=== PATIENT | male | born 1985 ===

== ENCOUNTER 2019-01-17 19:14 | Emergency (ER) | payer SELFPAY ==
--- NOTE | 2019-01-17 20:08 | C.PDOC ---
History Of Present Illness 33 y/o M p/w abdominal pain x 2 days. Pain is epigastric, constant, nonradiating, moderate in severity, associated with NBNB vomiting x 3. Reports normal bowel movements. Denies fever, chills, chest pain, dyspnea, dysuria, trauma. Reports drinking for the last 10 days, last drink about 5 hours ago. Time Seen by Provider: 01/17/19 19:59 Chief Complaint (Nursing): Abdominal Pain Past Medical History Vital Signs: Last Vital Signs Temp 98.2 F 01/17/19 19:25 Pulse 118 H 01/17/19 19:25 Resp 22 01/17/19 19:25 BP 160/124 H 01/17/19 19:25 Pulse Ox 97 01/17/19 19:25 - Medical History PMH: Anxiety, HTN Family History: States: No Known Family Hx - Social History Hx Alcohol Use: Yes Hx Substance Use: No - Immunization History Hx Tetanus Toxoid Vaccination: No Hx Influenza Vaccination: No Hx Pneumococcal Vaccination: No Review Of Systems Except As Marked, All Systems Reviewed And Found Negative. Constitutional: Negative for: Fever Cardiovascular: Negative for: Chest Pain Physical Exam - Physical Exam Additional Physical Exam Comments: Gen: NAD Head: NC/AT Eyes PERRL. ENT, no tongue fasciculations MMM Neck Supple and no midline tenderness Chest not tender CV Regular rate Lungs CTA b/l Abd: Epigastric tenderness. No rebound or guarding. Back: No CVA tenderness or midline tenderness Skin Flushed face Extremiites: FROM x 4 no tenderness or edema Neuro: Alert, no hand tremor ED Course And Treatment - Laboratory Results Result Diagrams: 01/17/19 20:24 01/17/19 20:24 O2 Sat by Pulse Oximetry: 97 Medical Decision Making Medical Decision Makin33 y/o alcoholic male with abd pain and vomiting without signs of withdrawal other than HTN but unknown baseline BP. Hydrate, Zofran, CT, labs, reassess. Differental includes but not limited to alcoholic gastritis, pancreatitis, dehydration, withdrawal, cholecystitis. CT abd/pel FINDINGS: LUNG BASES: The lung bases appear clear. No pleural effusions are seen. LIVER: There is hepatomegaly. The liver measured 17.1 cm in the midclavicular line. There is associated steatosis. GALLBLADDER AND BILE DUCTS: The gallbladder appears prominent in size but otherwise within normal limits. No radioopaque gallstones are seen. No biliary ductal dilatation is evident. PANCREAS: Unremarkable. SPLEEN: Unremarkable. ADRENAL GLANDS: Unremarkable. KIDNEYS, URETERS, AND BLADDER: The kidneys appear within normal limits. There is no hydronephrosis or hydroureter. No urinary calculi are seen. The urinary bladder appeared normal in size and configuration. STOMACH AND BOWEL: Note is made of distended thick walled stomach and fluid filled thick walled duodenum/jejunum compatible with gastroenteritis. No evidence of bowel ob struction. Mucosal wall thickening is seen involving all colonic segments compatible with pancolitis. Infectious or inflammatory etiologies are thought most likely. The left hemicolon is predominantly decompressed. No evidence suggesting enteritis. APPENDIX: No evidence of acute appendicitis on CT examination. PERITONEUM: No free fluid. No free air. LYMPH NODES: No lymphadenopathy is evident. REPRODUCTIVE: Unremarkable as visualized. VASCULATURE: No evidence of abdominal aortic aneurysm. BONES: No aggressive appearing osseous lesion. No acute osseous pathology evident. IMPRESSION: 1. Gastroenteritis. Consider consultation with GI service and follow up with upper endoscopy. 2. Evidence of pancolitis. 3. Hepatomegaly with steatosis. Vitals normal. Instructed to continue PO fluids, alcohol cessation, instructed to return to ED for worsening pain, fever, vomiting, dyspnea, tremor. Instructed to follow up with primary care for HTN and to return for symptoms of hypertensive emergency including chest pain, dyspnea, headache, urine changes. Disposition - Disposition Referrals: [facility] [Outside] Disposition: HOME/ ROUTINE Disposition Time: 22:15 Condition: GOOD Prescriptions: Ondansetron ODT [Zofran ODT] 4 mg PO Q8 #12 odt Instructions: Viral Gastroenteritis, Alcohol Abuse and Alcoholism (DC) Forms: [facility] (Serbian) - Clinical Impression Clinical Impression: Vomiting, Alcohol intoxication
[2019-01-17] MEDS ORDERED: Folic Acid 1 MG, Thiamine 100 MG, Multivitamin (MVI) 10 ML in Dextrose 5% In Water 1,00... IV SCH (20:15)
[2019-01-17 20:28] LABS: EOS % 0.4 % (0.0-4.0); MEAN PLATELET VOLUME 8.7 fL (7.2-11.7); MONO # 0.3 K/uL (0.0-0.8); RED CELL DISTRIBUTION WIDTH 13.9 % (11.5-14.5)
[2019-01-17 20:36] LABS: BASO % 0.7 % (0.0-2.0); HEMOGLOBIN 16.8 g/dL (12.0-18.0); LYMPH # 1.1 K/uL (1.0-4.3); LYMPH % 28.6 % (20.0-40.0); MEAN CELL VOLUME 92.7 fL (80.0-94.0); MEAN CORPUSCULAR HEMOGLOBIN 32.3 pg (27.0-31.0); MEAN CORPUSCULAR HGB CONC 34.9 g/dL (33.0-37.0); MONO % 7.5 % (0.0-10.0); NEUT # 2.5 K/uL (1.8-7.0); NEUT % 62.8 % (50.0-75.0); RBC 5.2 Mil/uL (4.40-5.90)
[2019-01-17 20:41] LABS: ALB/GLOB RATIO 1.5 (1.0-2.1); ALBUMIN 4.8 g/dL (3.5-5.0); ALT/SGPT 95 U/L (21-72); AST/SGOT 206 U/L (17-59); BLOOD UREA NITROGEN 15 mg/dL (9-20); CALCIUM 9.3 mg/dl (8.6-10.4); GFR NON-AFRICAN AMERICAN > 60; LIPASE 396 U/L (23-300)
[2019-01-17 21:00] LABS: URINE BILIRUBIN NEGATIVE (NEGATIVE); URINE BLOOD 1+ (NEGATIVE); URINE CLARITY Clear (Clear); URINE COLOR Yellow (YELLOW); URINE GLUCOSE (UA) NORMAL (Normal); URINE LEUKOCYTE ESTERASE NEG Leu/uL (Negative); URINE PROTEIN NEGATIVE (NEGATIVE); URINE UROBILINOGEN NORMAL mg/dL (0.2-1.0)
[2019-01-17] MEDS ORDERED: Iohexol 300 100 ML IJ ONE (21:03)
[2019-01-18 00:31] VITALS: BP 142/99; PULSE 79; RESP 16; TEMP 98.1; O2SAT 99
--- NOTE | 2019-01-18 08:35 | CT ---
Date of service: 01/17/2019 PROCEDURE: CT Abdomen and Pelvis with contrast HISTORY: abd pain, vomiting COMPARISON: None available. TECHNIQUE: CT scan of the abdomen and pelvis was performed after administration of intravenous contrast. Oral contrast was not administered. Coronal and sagittal reformatted images were obtained. Contrast dose: Radiation dose: Total exam DLP = 1085.28 mGy-cm. This CT exam was performed using one or more of the following dose reduction techniques: Automated exposure control, adjustment of the mA and/or kV according to patient size, and/or use of iterative reconstruction technique. FINDINGS: LOWER THORAX: The visualized lungs are clear. LIVER: Mild hepatomegaly and fatty liver. Normal homogeneous enhancement. No gross lesion or ductal dilatation. GALLBLADDER AND BILE DUCTS: The gallbladder is over distended. No calcified gallstones, wall thickening or pericholecystic fluid. PANCREAS: Normal in size with homogeneous enhancement. No gross lesion or ductal dilatation. SPLEEN: Normal in size and appearance. ADRENALS: No discrete nodule. KIDNEYS AND URETERS: Normal in size with homogeneous enhancement. No hydronephrosis. No solid mass. VASCULATURE: No aortic aneurysm. There are no aortic atherosclerotic calcifications or mural plaque present. BOWEL: Evaluation of the bowel is limited in the absence of oral contrast. There is ingested material in the stomach. There is mild dilatation of proximal small bowel loops with fecalization of small bowel contents. There is mild circumferential mural thickening in the ascending colon. The left hemicolon is decompressed. No bowel wall thickening or obstruction. APPENDIX: Normal appendix. PERITONEUM: No free fluid. No free air. LYMPH NODES: No enlarged lymph nodes. BLADDER: Well distended and normal in appearance. REPRODUCTIVE: The uterus is normal in size. BONES: No acute fracture. Within normal limits for the patient's age. OTHER FINDINGS: None. IMPRESSION: Mild dilatation of proximal small bowel loops with fecalization of small bowel contents which may be related to chronic stasis and nonspecific enteritis. No evidence for mechanical bowel obstruction. Mild circumferential mural thickening in the ascending colon could represent nonspecific infectious/inflammatory colitis. Clinical follow-up is advised. Mild hepatomegaly and fatty liver. The gallbladder is over distended without evidence for gallstones, wall thickening or pericholecystic fluid. Please correlate with right upper quadrant ultrasound for complete evaluation of the gallbladder. A preliminary report was provided by [facility]. The final report is tagged to the PA review folder.
--- NOTE | 2019-01-18 10:32 | RAD ---
Date of service: 01/17/2019 HISTORY: r/o PNA COMPARISON: No prior. FINDINGS: LUNGS: The lungs are well inflated and clear. PLEURA: No pleural effusions or pneumothorax. CARDIOVASCULAR: The heart is normal in size. No aortic atherosclerotic calcifications present. OSSEOUS STRUCTURES: Within normal limits for the patient's age. VISUALIZED UPPER ABDOMEN: Normal. OTHER FINDINGS: None. IMPRESSION: No active pulmonary disease.
== END 2019-01-18 00:38 | disposition home or self-care (01) ==
LOC: C.ER 19:14
DX: R11.10 Vomiting, unspecified (principal); F10.129 Alcohol abuse with intoxication, unspecified; Y90.8 Blood alcohol level of 240 mg/100 ml or more
CPT/HCPCS: 71045; 74177; 80053; 81001; 83690; 83735; 84100; 85025; 87086; 96374; 96375; 99285; G0480; J2405; J3411; J7070; Q9967